=== PATIENT | female | born 1965 | race Caucasian/White ===

== ENCOUNTER 2022-06-24 15:45 | Outpatient (REF) | payer OTHER, SELFPAY | END 2022-06-24 15:46 | disposition home or self-care (01) | LOC: HO.SH 15:45 | PROVIDERS: Visit Provider Nurse Practitioner Family | DX: Z01.118 Encounter for examination of ears and hearing with other abnormal findings (principal); H90.42 Sensorineural hearing loss, unilateral, left ear, with unrestricted hearing on the contralateral side | CPT/HCPCS: 92557; 92567 ==